=== PATIENT | female | born 1940 | race Caucasian/White ===

== ENCOUNTER 2017-06-29 10:49 | Outpatient (CLI) | payer MEDICARE, OTHER ==
--- NOTE | 2017-06-29 15:50 | Diagnostic Imaging Report ---
HARSH COTO [facility] [id number] [facility] [address] [address] Report Submission Date: Jun 29, 2017 11:47:50 AM PACKAGING ASSOCIATE Patient Study Name: JAGDISH GLOVER Date: Jun 29, 2017 11:32:35 AM PACKAGING ASSOCIATE Modality Type: CR Gender: F Description: ABDOMEN : 44 Institution: [facility] Physician: HARSH COTO Examination: Abdomen series History: CONSTIPATION; ABDOMINAL PAIN (Hx) / CONSTIPATION, ABDOMEN PAIN (DICOM Hx) / CONSTIPATION, ABDOMEN PAIN (Pt comments) Comparison exam: None available. Findings: 3 views obtained of the abdomen. No abnormal dilation of the small bowel. Significant stool throughout the large bowel. No suspicious calcification projecting over the renal fossa or the lower pelvic region. Pelvic phleboliths. Lumbar spine degenerative changes. Impression: Significant large bowel stool - constipation. No obstruction. Electronically signed on Jun 29, 2017 11:47:50 AM PACKAGING ASSOCIATE by: Edwin WEBB
== END 2017-06-29 10:50 ==
LOC: RAD 10:49
PROVIDERS: ATTEND Family Medicine
DX: K59.00 Constipation, unspecified (principal); R10.84 Generalized abdominal pain
CPT/HCPCS: 74000